=== PATIENT | female | born 1930 | race Caucasian/White ===

== ENCOUNTER → 2021-05-16 | Outpatient (CLI) | payer MEDICARE, BC ==
[2021-05-16 16:08] LABS: HCT 36.1 % (34.0-46.0); HGB 12.8 gm/dL (11.4-16.0); MCH 30.7 pg (25.0-35.0); MCHC 35.4 g/dL (31.0-37.0); MCV 86.7 fL (80.0-100.0); Mean Platelet Volume 6.8; Platelet Count 225 k/uL (150-450); RBC 4.17 m/uL (3.80-5.40); RDW 13.3 % (11.5-15.5); WBC 9.2 k/uL (3.8-10.6)
[2021-05-16 16:15] LABS: Appearance,Urine Clear (Clear); Bilirubin,Urine Negative (Negative); Blood,Urine Negative (Negative); Color,Urine Colorless; Glucose,Urine (UA) Negative (Negative); Ketones,Urine Negative (Negative); Leukocyte Esterase,Urine Large (Negative); Mucus,Urine Rare /hpf; Nitrite,Urine Negative (Negative); PH, Urine 5.5 (5.0-8.0); Protein,Urine Negative (Negative); RBC,Urine 3 /hpf (0-5); Specific Gravity,Urine 1.006 (1.001-1.035); Squamous Epithelial Cell,Urine <1 /hpf (0-4); Urobilinogen,Urine <2.0 mg/dL (<2.0); WBC,Urine 8 /hpf (0-5)
[2021-05-16 16:19] LABS: INR 0.9 (<1.2); Partial Thromboplastin Time 23.7 sec (22.0-30.0); Prothrombin Time 9.8 sec (9.0-12.0)
[2021-05-16 16:23] LABS: Albumin 4.1 g/dL (3.5-5.0); Calcium 10.7 mg/dL (8.4-10.2); Total Bilirubin 0.5 mg/dL (0.2-1.3); Total Protein 6.9 g/dL (6.3-8.2)
== END | disposition home or self-care (01) ==
LOC: LABPAT 15:22
PROVIDERS: ATTEND Orthopaedic Surgery
DX: Z01.812 Encounter for preprocedural laboratory examination (principal); M16.11 Unilateral primary osteoarthritis, right hip
CPT/HCPCS: 80053; 81001; 85027; 85610; 85730; 87070

== ENCOUNTER 2021-05-27 06:57 | Day surgery (SDC) | payer MEDICARE, BC ==
[2021-05-21 11:29] VITALS: BMI 32.2
[~2021-05-27 06:57] MED LIST: ACETAMINOPHEN TAB 500 MG TAB PO PRN; HYDROmorphone 0.5 MG/0.5 ML SYRINGE IVP PRN; LIDOCAINE 1% (10MG/ML) FOR IV START INTRADERMA PRN; MELOXICAM 7.5 MG TAB PO PRN; ONDANSETRON 4 MG/2 ML VIAL IVP PRN; ROPIVACAINE/EPI/CLONIDINE/KET 50 ML SYRINGE MISCELLANE PRN; TRANEXAMIC ACID 1,000 MG in SODIUM CHLORIDE 0.9% 100 ML IVPB PRN
[2021-05-27] MEDS: LACTATED RINGERS 1,000 ML IV SCH ×4 (07:50→19:26)
[2021-05-27] MEDS: DEXAMETHASONE SOD PHOSPHATE 4 MG/ML 1 ML VIAL IV ONE ×2 (07:55→12:32)
[2021-05-27] MEDS ORDERED: TRANEXAMIC ACID 1,000 MG/10 ML VIAL ONE (07:56)
[2021-05-27] MEDS ORDERED: PROPOFOL 10 MG/ML 20 ML VIAL IV ONE (07:56)
[2021-05-27] MEDS ORDERED: MIDAZOLAM 2 MG/2 ML VIAL ONE (07:56)
[2021-05-27] MEDS ORDERED: SODIUM CHLORIDE 0.9% 100 ML BAG ONE (07:56)
[2021-05-27] MEDS ORDERED: ceFAZolin 1,000 MG in SODIUM CHLORIDE 0.9% 1,000 ML IRRIGATION ONE (08:30)
--- NOTE | 2021-05-27 10:04 | P.OP ---
Date of Procedure: 05/27/21 Procedure(s) Performed: PREOPERATIVE DIAGNOSIS: Right hip severe osteoarthritis POSTOPERATIVE DIAGNOSIS: Right hip severe osteoarthritis OPERATION: Right hip total replacement arthroplasty (hybrid implantation with metal on polyethylene articulation). ANESTHESIA: Spinal ESTIMATED BLOOD LOSS: 50 ml. INFORMATION SECURITY ASSOCIATE: Svitlana Overton PA-C (assistance with: patient positioning, retraction, exposure, hemostasis, leg positioning, implantation, irrigation, closure, dressing) COMPLICATIONS: None apparent. COMPONENTS IMPLANTED: Jalen continuum acetabular cup with cluster holes; continuum longevity 15 elevated liner, 32 mm inner diameter; Jalen VerSys femoral stem; VerSys 32 mm femoral head with 10.5 mm neck length extension INDICATIONS: Mrs. Mcmahan is an 89 year old female she with significant end-stage osteoarthritis involving the right hip and commensurate severe symptoms. She presents to the operating room today for total hip replacement. I have discussed the steps of the operation as well as potential risks and complications as being inclusive of, but not limited to: Leading, infection, scarring, discomfort, or vessel and/or nerve damage, need for further surgery, loosening, dislocation, wear, osteolysis, limb length inequality, fracture, blood clot, pulmonary embolism, , persistent limp, and other risks. She has approximately 5-6 mm of limited quality with the left leg being longer than the right have told her that I will try my best to make up the difference. The patient is aware of these risks and wishes to proceed with surgery and has signed a consent form. PROCEDURE: After appropriate consent was obtained, the patient was taken to the operating room and placed in supine position. Spinal anesthetic was administered and after confirmation of adequate anesthesia, the patient was placed into the lateral decubitus position with the right side up. Care was taken to make sure that all pressure points were adequately padded and the patient was stabilized to the table with a [place] hip positioner. The right hip was prepped and draped in the usual aseptic fashion using a combination of ChloraPrep and alcohol. [place] drape was used for the case and the patient received intravenous antibiotics prior to the incision. Timeout was called, confirming patient id entity, side, procedure, availability of implants, and administration of IV antibiotics. The incision was created directly over the greater trochanter and carried slightly posteriorly for a posterior approach to the hip. The incision was then deepened down to subcutaneous tissue and fascia leonard. Fascia leonard was split in line with the incision and split proximally along the fibers of the gluteus m aximus. The underlying fibers of the muscle were teased apart using finger dissection and bleeding vessels were picked up and coagulated. Retractor was then placed posteriorly consisting of a blunt [place]. The short external rotators and capsule were exposed using good visualization of the attachment of the external rotators to the femur was established. The short external rotators and capsule were released using electrocautery from their femoral attachments. A hockey stick shaped incision was created in the capsule. Joint fluid was evacuated and the patient's hip was able to be dislocated fairly easily. The patient's femoral head was severely arthritic. The femoral neck cut was created approximately 1 cm superior to the lesser trochanter using a reciprocating saw. The femoral head and neck fragment was removed and attention was then directed to the acetabulum. An anterior acetabular retractor was applied followed by posterior retraction of the capsule with a [place] retractor. This afforded good visualization into the acetabular cavity. End-stage arthritis was noted. Soft tissue was removed and residual cartilage within the acetabular vault was removed using a curette. Labrum was removed using a long-handled knife. Attention was then directed to reaming. The size 44 reamer was used first, followed by increasing increments until the final size reamer was used. Please see the implantation sheet for exact sizes used for the components. Once the final reamer had been utilized to expand the socket it was noted that there was a good supportive bone around the acetabular socket and no further reaming needed to be performed. The trial the same size as the last reamer used was then impacted into the acetabular vault and found to have good fit. The acetabular size, one size (2mm) greater than the trial was then called for. The cluster holes were placed posteriorly and the component was impacted in a position of approximately 40 degrees abduction and 20 degrees anteversion. This matched this patient's paimiut anteversion and it was noted that the cup had excellent stability. A 15 elevated liner was inserted with the elevation posterior superior. Anesthetic solution consisting of ropivacaine with epinephrine, clonidine, and ketorolac was injected in a grid-type fashion around the anterior capsule, posterior capsule, abductor fascia, fascia leonard, subcutaneous tissues, and trochanteric bursa. This solution was injected periodically throughout the case depending on the exposure. Attention was then directed back to the proximal femur. Retractors were placed around the proximal femur and box osteotome was used followed by canal finder and trochanteric reamer. Cylindrical reaming was performed. Progressive broaching was then performed starting with a #10 broach and progressing final size, in a position of 10-15 degrees anteversion. [place] anteversion was within 5 degrees of stem position. The final size broach had excellent fit and fill of the patient's metaphysis and diaphysis. Trial reduction was then performed starting with size 32 mm femoral head and various neck combination of stability, limb length equality, and soft tissue tension. Trial components were then removed. Canal plug was inserted, and cement was mixed on the back table and allowed to reach a doughy consistency. The canal was pulse lavaged and brushed with a canal brush. Cement was then inserted retrograde into the canal and pressurized several times with thumb pressurization technique. The femoral stem component was impacted into position. Excess cement was removed. The cement was allowed to harden completely. The implant fit very well and had excellent stability. The femoral head was then impacted onto the Hernandez taper. Blood and debris were removed from the acetabular component and the hip was then reduced and checked for stability, limb length and soft tissue tension. These parameters found to be satisfactory, the wound was then thoroughly irrigated with normal saline. Final hemostasis was obtained using electrocautery and IV tranexamic acid, 1 g given at the time of prepping and draping, and another 1 g given at the time of closure. Closure of the capsule was performed meticulously using #3 Vicryl suture. Four [id number] sutures were placed in the posterior capsule along with repair of the external rotators. The fascia leonard was then repaired using combination of #3 Vicryl suture in interrupted fashion and Quill and running fashion. 2-0 Vicryl suture was used for the subcutaneous tissues and 3-0 [place] for the skin. Dermabond tape was then applied. The patient tolerated the procedure well. There were no complications and the wound bed was dry and there was no need for drain placement. Sterile dressing was then applied and the patient was carefully removed from the operating room table, placed on the stretcher and was taken to the recovery room in stable condition. Sponge and needle counts were correct.
[2021-05-27] MEDS ORDERED: ONDANSETRON 4 MG/2 ML VIAL IVP PRN (10:22)
[2021-05-27] MEDS ORDERED: HYDROmorphone 0.2 MG/1 ML SYRINGE IVP PRN (10:22)
[2021-05-27] MEDS ORDERED: NALOXONE 0.4 MG/ML 1 ML VIAL IV PRN (10:22)
[2021-05-27] MEDS ORDERED: HYDROmorphone 0.5 MG/0.5 ML SYRINGE IVP PRN ×2 (10:22)
[2021-05-27] MEDS ORDERED: MAGNESIUM HYDROXIDE 2,400 MG/10 ML CUP PO PRN (10:22)
[2021-05-27] MEDS ORDERED: TEMAZEPAM 15 MG CAP PO PRN (10:22)
[2021-05-27] MEDS ORDERED: LACTATED RINGERS 1,000 ML IV ONE (10:39)
--- NOTE | 2021-05-27 11:34 | XR ---
EXAMINATION TYPE: XR Hip Limited RT DATE OF EXAM: 05/27/2021 CLINICAL HISTORY: Postoperative evaluation TECHNIQUE: Single portable view of the right hip was submitted. FINDINGS: Noted are changes of total hip arthroplasty with femoral and acetabular components appearin g well seated. Alignment is anatomic. Postsurgical soft tissue changes are evident. IMPRESSION: Satisfactory postoperative alignment
[2021-05-27] MEDS: traMADol 50 MG TAB PO PRN ×2 (13:27→20:39)
[2021-05-27] MEDS: ASPIRIN 81 MG PO SCH (20:39)
[2021-05-27] MEDS: hydrALAZINE HCL 50 MG TAB PO SCH (20:39)
[2021-05-27] MEDS ORDERED: SENNOSIDES-DOCUSATE SODIUM 1 EACH TAB PO SCH (21:00)
[2021-05-27] MEDS ORDERED: SULFAMETHOX-TMP 800-160MG 1 EACH TAB PO SCH (21:00)
[2021-05-27] MEDS ORDERED: ATORVASTATIN 40 MG TAB PO SCH (21:00)
[2021-05-28] MEDS: LACTATED RINGERS 1,000 ML IV SCH ×3 (07:16→16:02)
[2021-05-28] MEDS: hydrALAZINE HCL 50 MG TAB PO SCH (07:59)
[2021-05-28] MEDS: traMADol 50 MG TAB PO PRN ×2 (07:59→14:00)
[2021-05-28] MEDS: ASPIRIN 81 MG PO SCH (07:59)
[2021-05-28] MEDS ORDERED: amLODIPine 5 MG TAB PO SCH (09:00)
[2021-05-28] MEDS ORDERED: CEPHALEXIN 500 MG CAP PO SCH ×2 (09:00→21:00)
[2021-05-28] MEDS ORDERED: atenoloL 50 MG TAB PO SCH (09:00)
[2021-05-28] MEDS ORDERED: MELOXICAM 7.5 MG TAB PO SCH (09:00)
[2021-05-28] MEDS ORDERED: CHLORTHALIDONE 25 MG TAB PO SCH (09:00)
--- NOTE | 2021-05-28 09:07 | P.DS ---
Providers Expected date of discharge: 05/28/21 Attending physician: Osorio Payne Consults: 05/27/21 10:22 Consult Physician Routine Consulting Provider: Akanksha Laboy Consult Reason/Comments: Medical management Do you want consulting provider notified?: Yes Primary care physician: Akanksha Laboy - Discharge Diagnosis(es) (1) Osteoarthritis of right hip Current Visit: Yes Status: Acute (2) Status post total hip replacement, right Current Visit: Yes Status: Acute Hospital Course: This is a 89-year-old female with known history of degenerative arthritis of the right hip. The patient presented for evaluation as an outpatient. After discussion and consideration patient elects to proceed with total hip arthroplasty. The patient is seen preoperatively by Dr. Payne and medically cleared for surgery by their primary care physician. Patient is admitted to [facility] on 05/27/2021 for total hip arthroplasty. The procedure is performed without complication or sequelae. The patient is doing well postoperatively. Labs and vital signs are stable on day of discharge. On day of discharge patient's hip incision is healing well. There is minimal erythema. There is no drainage noted at this time. There is minimal soft tissue swelling to the hip and thigh. Patient has full foot and ankle motion without difficulty or pain. Calf is soft and nontender to palpation. Neurovascular status to the right lower extremity is intact. Patient is discharged rehab in good condition. Please see med rec for accurate list of home medications. Plan - Discharge Summary Discharge Rx Participant: Yes New Discharge Prescriptions: New Meloxicam [Mobic] 1 tab PO DAILY PRN #30 tab PRN Reason: Pain Ondansetron Odt [Zofran Odt] 4 mg PO Q8HR PRN #14 tab PRN Reason: Nausea Aspirin [Adult Low Dose Aspirin EC] 81 mg PO BID #1 tablet. Sennosides-Docusate Sodium [Senokot-S] 1 tab PO BID #60 tablet traMADol HCL [Ultram] 50 mg PO Q6HR PRN #28 tab PRN Reason: Pain No Action Naproxen Sodium [Aleve] 220 mg PO Q4-6H PRN PRN Reason: Pain Acetaminophen [Tylenol] 325 mg PO Q4-6H PRN PRN Reason: Pain Atorvastatin [Lipitor] 40 mg PO HS Potassium Chloride [Klor-Con 20] 20 meq PO DAILY amLODIPine BESYLATE 5 mg PO QAM Atenolol/Chlorthalidone [Atenolol-Chlorthalidone 50-25] 1 each PO QAM Cholecalciferol [Vitamin D3 (25 Mcg = 1000 Iu)] 50 mcg PO DAILY Furosemide [Lasix] 20 mg PO Q48H hydrALAZINE HCL [Apresoline] 100 mg PO BID Sulfamethoxazole/Trimethoprim [Sulfamethoxazole-Tmp Ds Tablet] 1 each PO BID Discharge Medication List Acetaminophen [Tylenol] 325 mg PO Q4-6H PRN 06/16/16 [History] Naproxen Sodium [Aleve] 220 mg PO Q4-6H PRN 06/16/16 [History] Atenolol/Chlorthalidone [Atenolol-Chlorthalidone 50-25] 1 each PO QAM 05/21/21 [History] Atorvastatin [Lipitor] 40 mg PO HS 05/21/21 [History] Cholecalciferol [Vitamin D3 (25 Mcg = 1000 Iu)] 50 mcg PO DAILY 05/21/21 [History] Furosemide [Lasix] 20 mg PO Q48H 05/21/21 [History] Potassium Chloride [Klor-Con 20] 20 meq PO DAILY 05/21/21 [History] Sulfamethoxazole/Trimethoprim [Sulfamethoxazole-Tmp Ds Tablet] 1 each PO BID 05/21/21 [History] amLODIPine BESYLATE 5 mg PO QAM 05/21/21 [History] hydrALAZINE HCL [Apresoline] 100 mg PO BID 05/21/21 [History] Aspirin [Adult Low Dose Aspirin EC] 81 mg PO BID #1 tablet. 05/27/21 [Rx] Meloxicam [Mobic] 1 tab PO DAILY PRN #30 tab 05/27/21 [Rx] Ondansetron Odt [Zofran Odt] 4 mg PO Q8HR PRN #14 tab 05/27/21 [Rx] Sennosides-Docusate Sodium [Senokot-S] 1 tab PO BID #60 tablet 05/27/21 [Rx] traMADol HCL [Ultram] 50 mg PO Q6HR PRN #28 tab 05/27/21 [Rx] Follow up Appointment(s)/Referral(s): Svitlana Overton, BETY [PHYSICIAN PEARL FISHERMAN] - 2 Weeks Activity/Diet/Wound Care/Special Instructions: May bear weight as tolerated with walker. Keep Optifoam dressing intact for 10 days. May shower 48 hours postop. Discharge Disposition: TRANSFER TO SNF/ECF
[2021-05-28 12:57] LABS: Basophils # (A) 0.01 X 10*3/uL (0.00-0.10); Basophils % (A) 0.1 %; Eosinophils # (A) 0.01 X 10*3/uL (0.04-0.35); Eosinophils % (A) 0.1 %; HCT 31.1 % (37.2-46.3); HGB 10.2 g/dL (12.0-15.0); Lymphocytes # (A) 1.29 X 10*3/uL (0.90-5.00); Lymphocytes % (A) 11.4 %; MCH 29.1 pg (27.0-32.0); MCHC 32.8 g/dL (32.0-37.0); MCV 88.6 fL (80.0-97.0); Mean Platelet Volume 10.5 fL (9.5-12.2); Monocytes # (A) 0.83 X 10*3/uL (0.20-1.00); Monocytes % (A) 7.3 %; Neutrophils # (A) 9.17 X 10*3/uL (1.80-7.70); Neutrophils % (A) 80.7 %; Platelet Count 209 X 10*3/uL (140-440); RBC 3.51 X 10*6/uL (4.10-5.20); RDW 13.2 % (11.5-14.5); WBC 11.35 X 10*3/uL (4.50-10.00)
[2021-05-28 14:34] VITALS: BP 145/56; PULSE 64; RESP 18; TEMP 98.9
--- NOTE | 2021-05-28 22:47 | P.CONS ---
History of Present Illness - History of Present Illness This is a pleasant 84 years old female with past medical history of hypertens ion, hyperlipidemia, osteoarthritis was admitted for osteoarthritis of the right hip status post total right hip replacement. Postop she's doing well. No chest pain or dyspnea. Fully awake. She's not starting eating. When I saw her in the morning, no bowel movement or bowel Hemodynamically stable No labs Review of Systems CONSTITUTIONAL: No fever, no malaise, no fatigue. HEENT: No recent visual problems or hearing problems. Denied any sore throat. CARDIOVASCULAR: No orthopnea, PND, no palpitations, no syncope. PULMONARY: No shortness of breath, no cough, no hemoptysis. GASTROINTESTINAL: No diarrhea, no nausea, no vomiting, no abdominal pain. Normoactive bowel sounds. NEUROLOGICAL: No headaches, no weakness, no numbness. HEMATOLOGICAL: Denies any bleeding or petechiae. GENITOURINARY: Denies any burning micturition, frequency, or urgency. MUSCULOSKELETAL/RHEUMATOLOGICAL: Denies any joint pain, swelling, or any muscle pain. ENDOCRINE: Denies any polyuria or polydipsia. Past Medical History Past Medical History: Cancer, Hyperlipidemia, Hypertension, Osteoarthritis (OA) Additional Past Medical History / Comment(s): SEVERAL BASAL CELL/SKIN LESIONS REMOVED, heart murmer, varicose veins, UTI History of Any Multi-Drug Resistant Organisms: None Reported Past Surgical History: Section, Joint Replacement Additional Past Surgical History / Comment(s): BILATERAL CATARACTS, left hip replacement, colonoscopy Past Anesthesia/Blood Transfusion Reactions: Previous Problems w/ Anesthesia Additional Past Anesthesia/Blood Transfusion Reaction / Comm: came out of anesthesia during surgery Past Psychological History: No Psychological Hx Reported Smoking Status: Never smoker Past Alcohol Use History: Rare Past Drug Use History: None Reported - Past Family History Mother Family Medical History: No Reported History Medications and Allergies Home Medications Medication Instructions Recorded Confirmed Type Acetaminophen [Tylenol] 325 mg PO Q4-6H PRN 06/16/16 05/27/21 History Atenolol/Chlorthalidone 1 each PO QAM 05/21/21 05/27/21 History [Atenolol-Chlorthalidone 50-25] Atorvastatin [Lipitor] 40 mg PO HS 05/21/21 05/27/21 History Cholecalciferol [Vitamin D3 (25 50 mcg PO DAILY 05/21/21 05/21/21 History Mcg = 1000 Iu)] Furosemide [Lasix] 20 mg PO Q48H 05/21/21 05/21/21 History Potassium Chloride [Klor-Con 20] 20 meq PO DAILY 05/21/21 05/21/21 History amLODIPine BESYLATE 5 mg PO QAM 05/21/21 05/27/21 History hydrALAZINE HCL [Apresoline] 100 mg PO BID 05/21/21 05/27/21 History Ondansetron Odt [Zofran Odt] 4 mg PO Q8HR PRN #14 tab 05/27/21 Rx Sennosides-Docusate Sodium 1 tab PO BID #60 tablet 05/27/21 Rx [Senokot-S] traMADol HCL [Ultram] 50 mg PO Q6HR PRN #28 tab 05/27/21 Rx Aspirin [Adult Low Dose Aspirin EC] 81 mg PO BID #60 tablet. 05/28/21 Rx Allergies Allergy/AdvReac Type Severity Reaction Status Date / Time sulfamethoxazole AdvReac Nausea & Verified 05/27/21 15:36 [From Bactrim] Vomiting trimethoprim [From Bactrim] AdvReac Nausea & Verified 05/27/21 15:36 Vomiting Physical Exam Vitals: Vital Signs Temp Pulse Resp BP Pulse Ox 05/28/21 07:53 98.3 F 59 L 17 157/70 96 05/28/21 02:00 97.6 F 65 138/54 94 L 05/27/21 20:00 97.8 F 63 18 146/63 96 05/27/21 13:15 63 19 99/53 97 05/27/21 13:00 62 18 105/62 97 Intake and Output 05/27/21 05/28/21 05/28/21 22:59 06:59 14:59 Other: # Voids 2 2 GENERAL: The patient is alert and oriented x3, not in any acute distress. Well developed, well nourished. HEENT: Pupils are round and equally reacting to light. EOMI. No scleral icterus. No conjunctival pallor. Normocephalic, atraumatic. No pharyngeal erythema. No thyromegaly. CARDIOVASCULAR: S1 and S2 present. No murmurs, rubs, or gallops. PULMONARY: Chest is clear to auscultation, no wheezing or crackles. ABDOMEN: Soft, nontender, nondistended, normoactive bowel sounds. No palpable organomegaly. -MUSCULOSKELETAL: No joint swelling or deformity. Surgical wound closed, the rest of the examination of the wound to the surgical team EXTREMITIES: No cyanosis, clubbing, or pedal edema. NEUROLOGICAL: Gross neurological examination did not reveal any focal deficits. SKIN: No rashes. no petechiae. Results CBC & Chem 7: 05/28/21 06:11 Assessment and Plan Assessment: Right hip osteoarthritis status post right total hip replacement Hypertension Hyperlipidemia Plan: This is a pleasant 89 years old female who presents with right total hip replacement. Postop management and pain management and DVT prophylaxis per primary team Resume home medication Continue with pain management as per primary team Patient is medically stable for discharge to rehab today Patient was instructed to follow up with PCP in one week after discharge and she agrees Thank you for consulting us
== END 2021-05-28 16:48 ==
LOC: OR 06:57 → 4SSUR 10:54 → OR 05-28 16:48
PROVIDERS: ATTEND Orthopaedic Surgery
DX: M16.11 Unilateral primary osteoarthritis, right hip (principal); E78.5 Hyperlipidemia, unspecified; Z85.828 Personal history of other malignant neoplasm of skin; I12.9 Hypertensive chronic kidney disease with stage 1 through stage 4 chronic kidney disease, or unspecified chronic kidney disease; N18.31 Chronic kidney disease, stage 3a; R01.1 Cardiac murmur, unspecified; I83.90 Asymptomatic varicose veins of unspecified lower extremity; Z87.440 Personal history of urinary (tract) infections; Z98.891 History of uterine scar from previous surgery; Z96.642 Presence of left artificial hip joint; Z98.42 Cataract extraction status, left eye; Z98.41 Cataract extraction status, right eye; Z98.890 Other specified postprocedural states; Z79.891 Long term (current) use of opiate analgesic; Z79.899 Other long term (current) drug therapy; Z79.82 Long term (current) use of aspirin; Z88.2 Allergy status to sulfonamides; Z97.3 Presence of spectacles and contact lenses; Z82.49 Family history of ischemic heart disease and other diseases of the circulatory system; Z87.891 Personal history of nicotine dependence; Z88.8 Allergy status to other drugs, medicaments and biological substances; I44.7 Left bundle-branch block, unspecified; M85.80 Other specified disorders of bone density and structure, unspecified site; M54.30 Sciatica, unspecified side; B35.3 Tinea pedis; E78.00 Pure hypercholesterolemia, unspecified; E66.9 Obesity, unspecified; Z68.32 Body mass index [BMI] 32.0-32.9, adult; M06.9 Rheumatoid arthritis, unspecified; E55.9 Vitamin D deficiency, unspecified
CPT/HCPCS: 27130; 97116; 97110; 97161; 97165; 85025; 88300; 87635; 73501; C1776 ×2; C1713; J2250; J1100; J0690 ×3; J2405; J2704; J1170; 36415; 86850; 86900; 86901

== ENCOUNTER 2021-11-24 16:33 | Emergency (ER) | payer MEDICARE, BC ==
[2021-11-24 16:42] VITALS: RESP 18
[2021-11-24] MEDS ORDERED: SODIUM CHLORIDE 0.9% 500 ML 500 ML IV ONE (16:46)
--- NOTE | 2021-11-24 16:46 | ED ---
Nausea/Vomiting/Diarrhea HPI - General Chief complaint: Nausea/Vomiting/Diarrhea Stated complaint: vomiting Time Seen by Provider: 11/24/21 16:45 Source: patient Mode of arrival: ambulatory Limitations: no limitations - History of Present Illness Initial comments: hRea is a pleasant 89-year-old female who presents to ER today via ambulance. Patient ports that she lives alone. This morning she had some milk with breakfast in the milk with sour. She states that between 09/12/1928 she developed nausea and vomiting. She's not been able to stop vomiting throughout the day. Should a normal bowel movement this morning. She's not having any diarrhea. No fevers chills or recent illness. She states that because she had such sudden onset of symptoms she is concerned she has carbon monoxide poisoning however she has carbon monoxide detectors in the house and they were not alarming. - Related Data Home Medications Medication Instructions Recorded Confirmed Atenolol/Chlorthalidone 1 tab PO DAILY 05/21/21 11/24/21 [Atenolol/Chlorthalidone 50-25] Atorvastatin [Lipitor] 40 mg PO HS 05/21/21 11/24/21 Cholecalciferol [Vitamin D3 (25 50 mcg PO DAILY 05/21/21 11/24/21 Mcg = 1000 Iu)] Furosemide [Lasix] 20 mg PO Q48H 05/21/21 11/24/21 Potassium Chloride [Klor-Con 20] 20 meq PO Q48H 05/21/21 11/24/21 amLODIPine BESYLATE 5 mg PO DAILY 05/21/21 11/24/21 hydrALAZINE HCL [Apresoline] 100 mg PO BID 05/21/21 11/24/21 Previous Rx's Medication Instructions Recorded Ondansetron [Zofran ODT] 4 mg PO Q8HR #12 tab 11/24/21 Allergies Allergy/AdvReac Type Severity Reaction Status Date / Time sulfamethoxazole AdvReac Nausea & Verified 11/24/21 18:58 [From Bactrim] Vomiting trimethoprim [From Bactrim] AdvReac Nausea & Verified 11/24/21 18:58 Vomiting Review of Systems ROS Statement: Those systems with pertinent positive or pertinent negative responses have been documented in the HPI. ROS Other: All systems not noted in ROS Statement are negative. Past Medical History Past Medical History: Hyperlipidemia, Hypertension, Osteoarthritis (OA) Additional Past Medical History / Comment(s): SEVERAL BASAL CELL/SKIN LESIONS REMOVED, heart murmer, varicose veins, UTI History of Any Multi-Drug Resistant Organisms: None Reported Past Surgical History: Section Additional Past Surgical History / Comment(s): BILATERAL CATARACTS Past Anesthesia/Blood Transfusion Reactions: Motion Sickness Past Psychological History: No Psychological Hx Reported Past Alcohol Use History: Rare Past Drug Use History: None Reported - Past Family History Mother Family Medical History: No Reported History General Exam - General Exam Comments Initial Comments: Physical Exam GENERAL: Patient is well-developed and well-nourished. Patient is nontoxic and well-hydrated and is in no distress. HENT: Normocephalic, Atraumatic. EYES: PERRL, EOMI PULMONARY: Unlabored respirations. CARDIOVASCULAR: RRR Warm and well perfused extremities ABDOMEN: Soft, nondistended, nontender SKIN: No rashes or bruising : Deferred NEUROLOGIC: Alert and oriented Normal speech Normal gait MUSCULOSKELETAL: Moving all extremities with no apparent injury PSYCHIATRIC: No SI/HI Limitations: no limitations Course Vital Signs 11/24/21 11/24/21 16:40 20:30 Temperature 98 F 98.7 F Pulse Rate 78 85 Respiratory 18 18 Rate Blood Pressure 216/93 157/84 O2 Sat by Pulse 94 L 94 L Oximetry Medical Decision Making - Medical Decision Making The patient was seen and evaluated history was obtained from the patient Patient received IV fluids in the hospital as well as Zofran and her nausea has improved Labs and pain were unremarkable Patient's carboxyhemoglobin was unremarkable Observe for a number of hours with no further episodes of vomiting patient reports she is feeling better she doesn't have much appetite but she would like to go home Lab findings were discussed with patient's daughter, she states that one there are other family members was at the home yesterday and vomited they are concerned that the patient may been exposed COVID-19 would like her tested Patient will be tested prior to discharge but 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 home - Lab Data Result diagrams: 11/24/21 16:48 11/24/21 16:48 Lab Results 11/24/21 11/24/21 11/24/21 Range/Units 16:48 16:48 16:48 WBC 12.8 H (3.8-10.6) k/uL RBC 4.26 (3.80-5.40) m/uL Hgb 12.1 (11.4-16.0) gm/dL Hct 37.4 (34.0-46.0) % MCV 87.8 (80.0-100.0) fL MCH 28.4 (25.0-35.0) pg MCHC 32.4 (31.0-37.0) g/dL RDW 13.3 (11.5-15.5) % Plt Count 215 (150-450) k/uL MPV 7.2 Neutrophils % 90 % Lymphocytes % 8 % Monocytes % 2 % Eosinophils % 0 % Basophils % 0 % Neutrophils # 11.5 H (1.3-7.7) k/uL Lymphocytes # 1.0 (1.0-4.8) k/uL Monocytes # 0.2 (0-1.0) k/uL Eosinophils # 0.0 (0-0.7) k/uL Basophils # 0.0 (0-0.2) k/uL Carbon Monoxide, Quant 1.8 (<10.0) % Sodium 136 L (137-145) mmol/L Potassium 3.3 L (3.5-5.1) mmol/L Chloride 101 (98-107) mmol/L Carbon Dioxide 25 (22-30) mmol/L Anion Gap 10 mmol/L BUN 26 H (7-17) mg/dL Creatinine 0.83 (0.52-1.04) mg/dL Est GFR (CKD-EPI)AfAm 73 (>60 ml/min/1.73 sqM) Est GFR (CKD-EPI)NonAf 64 (>60 ml/min/1.73 sqM) Glucose 186 H (74-99) mg/dL Calcium 10.2 (8.4-10.2) mg/dL Total Bilirubin 0.6 (0.2-1.3) mg/dL AST 37 H (14-36) U/L ALT 23 (4-34) U/L Alkaline Phosphatase 135 H (38-126) U/L Total Protein 7.2 (6.3-8.2) g/dL Albumin 4.1 (3.5-5.0) g/dL Disposition Clinical Impression: Nausea and vomiting Disposition: HOME SELF-CARE Condition: Stable Instructions (If sedation given, give patient instructions): Acute Nausea and Vomiting (ED) Prescriptions: Ondansetron [Zofran ODT] 4 mg PO Q8HR #12 tab Is patient prescribed a controlled substance at d/c from ED?: No Referrals: Akanksha Laboy MD [Primary Care Provider] - 1-2 days
[2021-11-24 16:58] LABS: Basophils % (A) 0 %; Eosinophils % (A) 0 %; HCT 37.4 % (34.0-46.0); HGB 12.1 gm/dL (11.4-16.0); Lymphocytes % (A) 8 %; MCH 28.4 pg (25.0-35.0); MCHC 32.4 g/dL (31.0-37.0); MCV 87.8 fL (80.0-100.0); Mean Platelet Volume 7.2; Monocytes # (A) 0.2 k/uL (0-1.0); Monocytes % (A) 2 %; Neutrophils # (A) 11.5 k/uL (1.3-7.7); Neutrophils % (A) 90 %; Platelet Count 215 k/uL (150-450); RBC 4.26 m/uL (3.80-5.40); RDW 13.3 % (11.5-15.5); WBC 12.8 k/uL (3.8-10.6)
[2021-11-24 17:15] LABS: Albumin 4.1 g/dL (3.5-5.0); Calcium 10.2 mg/dL (8.4-10.2); Potassium 3.3 mmol/L (3.5-5.1); Total Bilirubin 0.6 mg/dL (0.2-1.3); Total Protein 7.2 g/dL (6.3-8.2)
[2021-11-24] MEDS ORDERED: ONDANSETRON 4 MG ODT STARTER PACK 2 TAB BTL PO STA (19:47)
[2021-11-24 20:32] VITALS: BP 157/84; PULSE 85; TEMP 98.7
== END 2021-11-24 20:42 | disposition home or self-care (01) ==
LOC: EC 16:33
DX: R11.2 Nausea with vomiting, unspecified (principal); I10 Essential (primary) hypertension; E78.5 Hyperlipidemia, unspecified; M19.90 Unspecified osteoarthritis, unspecified site; Z79.899 Other long term (current) drug therapy
CPT/HCPCS: 36415; 80053; 82375; 85025; 87635; 99284; S0119

== ENCOUNTER 2022-03-10 14:16 | Inpatient (IN) | payer MEDICARE, BC ==
[~2022-03-10 14:16] MED LIST changes: -ACETAMINOPHEN TAB 500 MG TAB PO PRN; -HYDROmorphone 0.5 MG/0.5 ML SYRINGE IVP PRN; -LIDOCAINE 1% (10MG/ML) FOR IV START INTRADERMA PRN; -MELOXICAM 7.5 MG TAB PO PRN; -ONDANSETRON 4 MG/2 ML VIAL IVP PRN; -ROPIVACAINE/EPI/CLONIDINE/KET 50 ML SYRINGE MISCELLANE PRN; -TRANEXAMIC ACID 1,000 MG in SODIUM CHLORIDE 0.9% 100 ML IVPB PRN; +ceFAZolin 1 GM in SODIUM CHLORIDE 0.9% IRRIG BTL 250 ML IRRIGATION PRN
--- NOTE | 2022-03-10 15:28 | ED ---
General Adult HPI - General Chief complaint: Dizziness Stated complaint: Low heart rate, abnormal EKG, Shortness of Breath Time Seen by Provider: 03/10/22 14:59 Source: patient, RN notes reviewed, old records reviewed Mode of arrival: wheelchair Limitations: no limitations - History of Present Illness Initial comments: This is an 89-year-old female who presents emergency Department complaining of weakness and lightheadedness and near syncopal episodes. Patient states she has not passed out. Patient states been ongoing for the last 2-3 days. Patient denies any chest pain or palpitations. Patient denies shortness of breath or difficulty breathing. Patient states she does feel extremely tired and weak. Patient denies any recent fever chills or cough per patient denies any abdominal pain patient denies nausea vomiting diarrhea. - Related Data Home Medications Medication Instructions Recorded Confirmed Atenolol/Chlorthalidone 1 tab PO DAILY 05/21/21 11/24/21 [Atenolol/Chlorthalidone 50-25] Atorvastatin [Lipitor] 40 mg PO HS 05/21/21 11/24/21 Cholecalciferol [Vitamin D3 (25 50 mcg PO DAILY 05/21/21 11/24/21 Mcg = 1000 Iu)] Furosemide [Lasix] 20 mg PO Q48H 05/21/21 11/24/21 Potassium Chloride [Klor-Con 20] 20 meq PO Q48H 05/21/21 11/24/21 amLODIPine BESYLATE 5 mg PO DAILY 05/21/21 11/24/21 hydrALAZINE HCL [Apresoline] 100 mg PO BID 05/21/21 11/24/21 Previous Rx's Medication Instructions Recorded Ondansetron [Zofran ODT] 4 mg PO Q8HR #12 tab 11/24/21 Allergies Allergy/AdvReac Type Severity Reaction Status Date / Time sulfamethoxazole AdvReac Nausea & Verified 03/10/22 14:46 [From Bactrim] Vomiting trimethoprim [From Bactrim] AdvReac Nausea & Verified 03/10/22 14:46 Vomiting Review of Systems ROS Statement: Those systems with pertinent positive or pertinent negative responses have been documented in the HPI. ROS Other: All systems not noted in ROS Statement are negative. Past Medical History Past Medical History: Hyperlipidemia, Hypertension, Osteoarthritis (OA) Additional Past Medical History / Comment(s): SEVERAL BASAL CELL/SKIN LESIONS REMOVED, heart murmer, varicose veins, UTI History of Any Multi-Drug Resistant Organisms: None Reported Past Surgical History: Section Additional Past Surgical History / Comment(s): BILATERAL CATARACTS Past Anesthesia/Blood Transfusion Reactions: Motion Sickness Past Psychological History: No Psychological Hx Reported Smoking Status: Never smoker Past Alcohol Use History: Rare Past Drug Use History: None Reported - Past Family History Mother Family Medical History: No Reported History General Exam - General Exam Comments Initial Comments: GENERAL: Patient is well-developed and well-nourished. Patient is nontoxic and well- hydrated and is in mild distress. ENT: Neck is soft and supple. No significant lymphadenopathy is noted. Oropharynx is clear. Moist mucous membranes. Neck has full range of motion without eliciting any pain. EYES: The sclera were anicteric and conjunctiva were pink and moist. Extraocular movements were intact and pupils were equal round and reactive to light. Eyelids were unremarkable. PULMONARY: Unlabored respirations. Good breath sounds bilaterally. No audible rales rhonchi or wheezing was noted. CARDIOVASCULAR: Patient has a heart rate of 25-35 bpm. ABDOMEN: Soft and nontender with normal bowel sounds. SKIN: Skin is clear with no lesions or rashes and otherwise unremarkable. NEUROLOGIC: Patient is alert and oriented x3. Cranial nerves II through XII are grossly intact. Motor and sensory are also intact. Normal speech, volume and content. Symmetrical smile. MUSCULOSKELETAL: Normal extremities with adequate strength and full range of motion. LYMPHATICS: No significant lymphadenopathy is noted PSYCHIATRIC: Normal psychiatric evaluation. Limitations: no limitations Course Vital Signs 03/10/22 03/10/22 14:46 15:05 Temperature 98.3 F Pulse Rate 32 L Pulse Rate [ 30 L Nip Wrapper ] Respiratory 16 Rate Blood Pressure 172/69 O2 Sat by Pulse 95 Oximetry Medical Decision Making - Medical Decision Making EKG showed a third-degree block at 25 bpm VA interval is 121 QRS is 137 QT intervals 597 QTC is 408. Patient's EKG shows no significant ST segment elevation or depression. I spoke with Dr. Sotomayor he came down and saw the patient and he determined that the pacemaker will be placed by Dr. Souza - Lab Data Result diagrams: 03/10/22 15:21 03/10/22 15:21 Lab Results 03/10/22 03/10/22 03/10/22 Range/Units 15:21 15:21 15:21 WBC 10.1 (3.8-10.6) k/uL RBC 3.97 (3.80-5.40) m/uL Hgb 11.2 L (11.4-16.0) gm/dL Hct 34.5 (34.0-46.0) % MCV 86.9 (80.0-100.0) fL MCH 28.3 (25.0-35.0) pg MCHC 32.6 (31.0-37.0) g/dL RDW 14.0 (11.5-15.5) % Plt Count 232 (150-450) k/uL MPV 7.8 Neutrophils % 81 % Lymphocytes % 14 % Monocytes % 3 % Eosinophils % 0 % Basophils % 0 % Neutrophils # 8.2 H (1.3-7.7) k/uL Lymphocytes # 1.4 (1.0-4.8) k/uL Monocytes # 0.3 (0-1.0) k/uL Eosinophils # 0.0 (0-0.7) k/uL Basophils # 0.0 (0-0.2) k/uL PT 10.4 (9.0-12.0) sec INR 1.0 (<1.2) APTT 25.1 (22.0-30.0) sec Sodium 134 L (137-145) mmol/L Potassium 3.5 (3.5-5.1) mmol/L Chloride 99 (98-107) mmol/L Carbon Dioxide 26 (22-30) mmol/L Anion Gap 9 mmol/L BUN 32 H (7-17) mg/dL Creatinine 1.18 H (0.52-1.04) mg/dL Est GFR (CKD-EPI)AfAm 47 (>60 ml/min/1.73 sqM) Est GFR (CKD-EPI)NonAf 41 (>60 ml/min/1.73 sqM) Glucose 111 H (74-99) mg/dL Calcium 9.8 (8.4-10.2) mg/dL Magnesium 1.5 L (1.6-2.3) mg/dL Total Bilirubin 0.7 (0.2-1.3) mg/dL AST 31 (14-36) U/L ALT 21 (4-34) U/L Alkaline Phosphatase 112 (38-126) U/L Troponin I (0.000-0.034) ng/mL Total Protein 6.6 (6.3-8.2) g/dL Albumin 3.6 (3.5-5.0) g/dL TSH (0.465-4.680) mIU/L 03/10/22 03/10/22 Range/Units 15:21 15:58 WBC (3.8-10.6) k/uL RBC (3.80-5.40) m/uL Hgb (11.4-16.0) gm/dL Hct (34.0-46.0) % MCV (80.0-100.0) fL MCH (25.0-35.0) pg MCHC (31.0-37.0) g/dL RDW (11.5-15.5) % Plt Count (150-450) k/uL MPV Neutrophils % % Lymphocytes % % Monocytes % % Eosinophils % % Basophils % % Neutrophils # (1.3-7.7) k/uL Lymphocytes # (1.0-4.8) k/uL Monocytes # (0-1.0) k/uL Eosinophils # (0-0.7) k/uL Basophils # (0-0.2) k/uL PT (9.0-12.0) sec INR (<1.2) APTT (22.0-30.0) sec Sodium (137-145) mmol/L Potassium (3.5-5.1) mmol/L Chloride (98-107) mmol/L Carbon Dioxide (22-30) mmol/L Anion Gap mmol/L BUN (7-17) mg/dL Creatinine (0.52-1.04) mg/dL Est GFR (CKD-EPI)AfAm (>60 ml/min/1.73 sqM) Est GFR (CKD-EPI)NonAf (>60 ml/min/1.73 sqM) Glucose (74-99) mg/dL Calcium (8.4-10.2) mg/dL Magnesium (1.6-2.3) mg/dL Total Bilirubin (0.2-1.3) mg/dL AST (14-36) U/L ALT (4-34) U/L Alkaline Phosphatase (38-126) U/L Troponin I 0.058 H* (0.000-0.034) ng/mL Total Protein (6.3-8.2) g/dL Albumin (3.5-5.0) g/dL TSH 1.600 (0.465-4.680) mIU/L Critical Care Time Critical Care Time: Yes Total Critical Care Time: 35 Disposition Clinical Impression: Third degree AV block, Near syncope Disposition: ADMITTED IP TO THIS HOSP Referrals: Akanksha Laboy MD [Primary Care Provider] - 1-2 days Time of Disposition: 17:03
[2022-03-10 15:38] LABS: Albumin 3.6 g/dL (3.5-5.0); Calcium 9.8 mg/dL (8.4-10.2); Magnesium 1.5 mg/dL (1.6-2.3); Potassium 3.5 mmol/L (3.5-5.1); Total Bilirubin 0.7 mg/dL (0.2-1.3); Total Protein 6.6 g/dL (6.3-8.2)
[2022-03-10 15:40] LABS: Basophils % (A) 0 %; Eosinophils % (A) 0 %; HCT 34.5 % (34.0-46.0); HGB 11.2 gm/dL (11.4-16.0); Lymphocytes # (A) 1.4 k/uL (1.0-4.8); Lymphocytes % (A) 14 %; MCH 28.3 pg (25.0-35.0); MCHC 32.6 g/dL (31.0-37.0); MCV 86.9 fL (80.0-100.0); Mean Platelet Volume 7.8; Monocytes # (A) 0.3 k/uL (0-1.0); Monocytes % (A) 3 %; Neutrophils # (A) 8.2 k/uL (1.3-7.7); Neutrophils % (A) 81 %; Platelet Count 232 k/uL (150-450); RBC 3.97 m/uL (3.80-5.40); WBC 10.1 k/uL (3.8-10.6)
[2022-03-10 15:41] LABS: Partial Thromboplastin Time 25.1 sec (22.0-30.0); Prothrombin Time 10.4 sec (9.0-12.0)
--- NOTE | 2022-03-10 15:42 | XR ---
EXAMINATION TYPE: XR chest 2V DATE OF EXAM: 03/10/2022 COMPARISON: NONE HISTORY: SOB and dizzyness. TECHNIQUE: Frontal and lateral views of the chest are obtained. FINDINGS: There is chronic parenchymal change without focal air space opacity, pleural effusion, or pneumothorax seen. Cardiomegaly with atherosclerotic thoracic aorta. The osseous structures are de mineralized. Degenerative changes bilateral glenohumeral joints. IMPRESSION: Chronic changes and cardiomegaly without acute pulmonary process.
--- NOTE | 2022-03-10 15:51 | P.CRDCN ---
History of Present Illness Consult date: 03/10/22 History of present illness: History of Present Illness: The patient is an 89-year-old female with no prior of CAD or CHF who for the last few days has been complaining of progressive fatigue, dyspnea on exertion, dizziness but no syncope. She was seen by Dr. Laboy today and was found to be bradycardic. In the emergency room she was noted to be in complete heart block. She has no syncopal episode and no prior similar events. She is usually active physically, drives and takes care of her daily activity without any limitations. She has no history of PND or orthopnea. She has chronic peripheral edema according to her stable. She denies any chest discomfort and she has no palpitations. She has no recent change in her medication. She has a history of hypertension and hyperlipidemia, she is a nonsmoker nondiabetic. In the emergency room her potassium was normal at 3.5 and her BUN 32 with a creatinine of 1.18, her creatinine was normal in November. Her EKG shows sinus mechanism with complete heart block and a ventricular rate in the 30s. Her medications include hydralazine 100 mg twice a day, amlodipine 5 mg daily, atenolol chlorthalidone 5025 milligrams daily, Lipitor 40 mg daily, Lasix 20 mg every other day in addition to potassium. Review of Systems: Respiratory: She has the history of progressive dyspnea over the last week GI: She had nausea and vomiting today. No history of peptic ulcer disease. No recent GI bleed. : No hematuria or dysuria. Nervous System: No stroke or seizure. Physical Examination: She is an 89-year-old female, alert and oriented no apparent distress. Blood pressure 170/60 with a heart rate in the 30s Head: Normocephalic. Eyes: Sclerae nonicteric. Neck: Good carotid upstroke, no bruit, no jugular venous distention. Lungs: Clear to auscultation. Heart: Bradycardic, S1-S2 was a systolic murmur ejection type at the base 2/6 Abdomen: Soft nontender, positive bowel sound, no organomegaly Extremities: +1 edema, intact distal pulses. Labs: EKG shows sinus mechanism with sinus bradycardia and no acute ST segment changes. Potassium 3.5. Hemoglobin 11.2. Chest x-ray with no acute infiltrate Impression: 1. Symptomatic complete heart block, her sinus rate is stable 2. History of hypertension 3. History of hyperlipidemia 4. Worsening renal function probable secondary to hypoperfusion Plan: 1. The patient would require permanent pacemaker implantation, I discussed the findings with her and her daughter 2. Hold beta salvador 3. Resume other antihypertensive regimen 4. Obtain an echocardiogram with Doppler 5. Discussed the case with Dr. Souza who will proceed with permanent pacemaker implantation today 6. Thank you for this consult we will follow with you. Past Medical History Past Medical History: Hyperlipidemia, Hypertension, Osteoarthritis (OA) Additional Past Medical History / Comment(s): SEVERAL BASAL CELL/SKIN LESIONS REMOVED, heart murmer, varicose veins, UTI History of Any Multi-Drug Resistant Organisms: None Reported Past Surgical History: Section Additional Past Surgical History / Comment(s): BILATERAL CATARACTS Past Anesthesia/Blood Transfusion Reactions: Motion Sickness Past Psychological History: No Psychological Hx Reported Smoking Status: Never smoker Past Alcohol Use History: Rare Past Drug Use History: None Reported - Past Family History Mother Family Medical History: No Reported History Medications and Allergies Home Medications Medication Instructions Recorded Confirmed Type Atenolol/Chlorthalidone 1 tab PO DAILY 05/21/21 11/24/21 History [Atenolol/Chlorthalidone 50-25] Atorvastatin [Lipitor] 40 mg PO HS 05/21/21 11/24/21 History Cholecalciferol [Vitamin D3 (25 50 mcg PO DAILY 05/21/21 11/24/21 History Mcg = 1000 Iu)] Furosemide [Lasix] 20 mg PO Q48H 05/21/21 11/24/21 History Potassium Chloride [Klor-Con 20] 20 meq PO Q48H 05/21/21 11/24/21 History amLODIPine BESYLATE 5 mg PO DAILY 05/21/21 11/24/21 History hydrALAZINE HCL [Apresoline] 100 mg PO BID 05/21/21 11/24/21 History Ondansetron [Zofran ODT] 4 mg PO Q8HR #12 tab 11/24/21 Rx Allergies Allergy/AdvReac Type Severity Reaction Status Date / Time sulfamethoxazole AdvReac Nausea & Verified 03/10/22 14:46 [From Bactrim] Vomiting trimethoprim [From Bactrim] AdvReac Nausea & Verified 03/10/22 14:46 Vomiting Physical Exam Vitals: Vital Signs Temp Pulse Pulse Resp BP Pulse Ox 03/10/22 15:05 30 L 03/10/22 14:46 98.3 F 32 L 16 172/69 95 Intake and Output 03/10/22 03/10/22 03/10/22 06:59 14:59 22:59 Other: Weight 76.204 kg Results 03/10/22 15:21 03/10/22 15:21 Cardiac Enzymes 03/10/22 Range/Units 15:21 AST 31 (14-36) U/L Coagulation 03/10/22 Range/Units 15:21 PT 10.4 (9.0-12.0) sec APTT 25.1 (22.0-30.0) sec CBC 03/10/22 Range/Units 15: WBC 10.1 (3.8-10.6) k/uL RBC 3.97 (3.80-5.40) m/uL Hgb 11.2 L (11.4-16.0) gm/dL Hct 34.5 (34.0-46.0) % Plt Count 232 (150-450) k/uL Comprehensive Metabolic Panel 03/10/22 Range/Units 15:21 Sodium 134 L (137-145) mmol/L Potassium 3.5 (3.5-5.1) mmol/L Chloride 99 (98-107) mmol/L Carbon Dioxide 26 (22-30) mmol/L BUN 32 H (7-17) mg/dL Creatinine 1.18 H (0.52-1.04) mg/dL Glucose 111 H (74-99) mg/dL Calcium 9.8 (8.4-10.2) mg/dL AST 31 (14-36) U/L ALT 21 (4-34) U/L Alkaline Phosphatase 112 (38-126) U/L Total Protein 6.6 (6.3-8.2) g/dL Albumin 3.6 (3.5-5.0) g/dL Intake and Output 03/10/22 03/10/22 03/10/22 06:59 14:59 22:59 Other: Weight 76.204 kg Patient Weight 03/11/22 06:59 Weight 76.204 kg 03/10/22 15:21 03/10/22 15:21
[2022-03-10] MEDS ORDERED: SODIUM CHLORIDE 0.9% 1,000 ML IV SCH ×2 (16:45)
[2022-03-10] MEDS ORDERED: fentaNYL (PF) 50 MCG/ML 2 ML AMP ONE (19:01)
[2022-03-10] MEDS ORDERED: IOPAMIDOL-370 50ML BTL INJ ONE (19:08)
[2022-03-10] MEDS ORDERED: LIDOCAINE 1% INJ 10MG/ML (30 ML VIAL-PF) SQ ONE ×3 (19:25→19:50)
[2022-03-10] MEDS ORDERED: IV FLUID CONTINUATION 800 ML IV ONE (20:21)
[2022-03-10] MEDS ORDERED: ACETAMINOPHEN TAB 325 MG TAB PO PRN (20:41)
--- NOTE | 2022-03-10 20:41 | P.PCN ---
Preoperative Diagnosis: Patient underwent EP procedure under conscious sedation/moderate sedation, monitoring of the level of consciousness and physiologic parameters including but not limited to vital signs and oxygenation. Patient tolerated the procedure well without any acute complications. Start time: 1919 Stop time: 2033
--- NOTE | 2022-03-10 20:41 | P.PCN ---
Preoperative Diagnosis: Transvenous temporary pacing procedure Indication for the procedure: Severe underlying bradycardia Patient was brought to the EP lab in a fasting state. Written informed consent was obtained prior to the procedure. The right groin was prepped and draped as a protocol. A 6-[place] sheath was placed in the right femoral vein. Via this, a temporary pacing catheter was placed in the right ventricle. Thresholds were interrogated. Temporary pacing was performed through the rest of the procedure. At the end of the entire procedure, the TVP was removed. The sheath was removed and hemostasis was assured. Patient tolerated the procedure well without any acute complications. Procedure performed Transvenous temporary pacing
[2022-03-10] MEDS: hydrALAZINE HCL 50 MG TAB PO SCH (22:11)
[2022-03-10] MEDS: ATORVASTATIN 40 MG TAB PO SCH (22:12)
--- NOTE | 2022-03-10 22:43 | P.HPIM ---
History of Present Illness H&P Date: 03/10/22 Chief Complaint: Tired This is a very pleasant 89-year-old patient who follows with Dr. Akanksha Laboy. Chronic stable medical conditions include hypertension, hyperlipidemia, prostatitis, varicose veins. For about 3 days patient been feeling lightheaded dizzy. Short of breath on exertion. No chest pain or palpitation. She made an appointment to see her family doctor. She was found to be in complete heart block and send him to the ER. Earlier this evening patient had a transvenous temporary pacing placed. Post wishes laying in bed. Left arm in a sling. Blood pressure running on the high side. No chest pain or palpitation. Review of systems: GEN.: Tired EYES: None HEENT: None NECK: None RESPIRATORY: None CARDIOVASCULAR: As above GASTROINTESTINAL: None GENITOURINARY: None MUSCULOSKELETAL: Joint pains LYMPHATICS: None HEMATOLOGICAL: None PSYCHIATRY: None NEUROLOGICAL: None Past medical history to include: Hypertension, hyperlipidemia, osteoarthritis, basal cell skin cancer removed, varicose veins, Social history: Nonsmoker. Alcohol rarely. Lives alone. Family history: Reviewed, noncontributory to presentation Physical examination: VITAL SIGNS: 98.3, 32, 16, 135-67, 98% room air upon presentation GENERAL: BMI 32.8, laying in bed, awake. Left dominant sling. EYES: Pupils equal. Conjunctiva normal. HEENT: External appearance of nose and ears normal, oral cavity grossly normal. NECK: JVD not raised; masses not palpable. HEART: First and second heart sounds are normal; no edema. LUNGS: Respiratory rate normal; clear to auscultation. ABDOMEN: Soft, nontender, liver spleen not palpable, no masses palpable. PSYCH: Alert and oriented x3; mood and affect normal. MUSCULOSKELETAL:No Clubbing/cyanosis;muscles-grossly intact. Evidence of OA. NEUROLOGICAL: Cranial nerves grossly intact; no facial asymmetry, power and sensation grossly intact. LYMPHATICS: No lymph nodes palpable in the axilla and neck INVESTIGATIONS, reviewed in the clinical context: White count 10.1 hemoglobin 11.2 platelets 232 sodium 134 potassium 3.5 BUN 32 creatinine 1.18 Troponin I 0.058 TSH 1.6 EKG tracing personally reviewed by me-complete heart block. Ventricular rate 25 Chest x-ray film personally reviewed by me-venous prominence Assessment and plan: -Complete heart block. Patient has been symptomatic for last 3-4 days. Temporary transvenous pacing placed. By Dr. Milton Souza. -Acute pulmonary edema from complete heart block Lasix as needed -Essential hypertension Hydralazine 100 mg twice a day. Amlodipine 5 mg a day. Hold beta salvador -Hyperlipidemia Lipitor 40 mg a day -Primary ostomy 30 cm bilaterally Tylenol as needed -Obesity BMI 32.8 Weight loss measures Resume home medications. Hold beta salvador. Temporary venous pacemaker placed. [address] Care was discussed the patient. Ques tions answered. Given the complexity and severity of patient's condition expect the patient to be in the hospital at least for 2 overnights Past Medical History Past Medical History: Hyperlipidemia, Hypertension, Osteoarthritis (OA) Additional Past Medical History / Comment(s): SEVERAL BASAL CELL/SKIN LESIONS REMOVED, heart murmer, varicose veins, UTI History of Any Multi-Drug Resistant Organisms: None Reported Past Surgical History: Section Additional Past Surgical History / Comment(s): BILATERAL CATARACTS Past Anesthesia/Blood Transfusion Reactions: Motion Sickness Past Psychological History: No Psychological Hx Reported Smoking Status: Never smoker Past Alcohol Use History: Rare Past Drug Use History: None Reported - Past Family History Mother Family Medical History: No Reported History Medications and Allergies Home Medications Medication Instructions Recorded Confirmed Type Atenolol/Chlorthalidone 1 tab PO DAILY 05/21/21 03/10/22 History [Atenolol/Chlorthalidone 50-25] Atorvastatin [Lipitor] 40 mg PO DAILY 05/21/21 03/10/22 History Cholecalciferol [Vitamin D3 (25 50 mcg PO DAILY 05/21/21 03/10/22 History Mcg = 1000 Iu)] Furosemide [Lasix] 20 mg PO Q48H 05/21/21 03/10/22 History Potassium Chloride [Klor-Con 20] 20 meq PO Q48H 05/21/21 03/10/22 History amLODIPine BESYLATE 5 mg PO DAILY 05/21/21 03/10/22 History hydrALAZINE HCL [Apresoline] 100 mg PO BID 05/21/21 03/10/22 History Allergies Allergy/AdvReac Type Severity Reaction Status Date / Time sulfamethoxazole AdvReac Nausea & Verified 03/10/22 17:07 [From Bactrim] Vomiting trimethoprim [From Bactrim] AdvReac Nausea & Verified 03/10/22 17:07 Vomiting Physical Exam Vitals: Vital Signs Temp Pulse Pulse Resp BP Pulse Ox 03/10/22 18:36 30 L 18 135/67 98 03/10/22 15:05 30 L 03/10/22 14:46 98.3 F 32 L 16 172/69 95 Intake and Output 03/10/22 03/10/22 03/10/22 06:59 14:59 22:59 Intake Total 200 Balance 200 Intake: IV 200 Other: Weight 76.204 kg Results CBC & Chem 7: 03/10/22 15:21 03/10/22 15:21 Labs: Abnormal Lab Results - Last 24 Hours (Table) 03/10/22 03/10/22 03/10/22 Range/Units 15:21 15:21 15:21 Hgb 11.2 L (11.4-16.0) gm/dL Neutrophils # 8.2 H (1.3-7.7) k/uL Sodium 134 L (137-145) mmol/L BUN 32 H (7-17) mg/dL Creatinine 1.18 H (0.52-1.04) mg/dL Glucose 111 H (74-99) mg/dL Magnesium 1.5 L (1.6-2.3) mg/dL Troponin I 0.058 H* (0.000-0.034) ng/mL
--- NOTE | 2022-03-11 08:28 | XR ---
EXAMINATION TYPE: XR chest 1V portable DATE OF EXAM: 03/11/2022 COMPARISON: X-ray dated 03/10/2022 HISTORY: Lead placement check TECHNIQUE: Single frontal view of the chest is obtained. FINDINGS: Interval insertion of a left upper chest wall dual-lead pacemaker. Increased cardiac transverse diame ter with dense aortic atherosclerotic calcifications. Prominent interstitial lung markings which coul d be related to mild underlying pulmonary fibrotic changes. No sizable pleural effusion or definite pneumothorax. Osteopenia. Degenerative changes of lower cervi marti, thoracic spine and the right glenohumeral articulation. Mild dextroscoliosis of the lower thorac ic spine. IMPRESSION: As above.
[2022-03-11] MEDS: hydrALAZINE HCL 50 MG TAB PO SCH ×3 (08:32→20:47)
--- NOTE | 2022-03-11 08:50 | P.PN ---
Subjective Progress Note Date: 03/11/22 PROGRESS NOTE The patient is an 89-year-old female who presented with symptoms of progressive fatigue, dizziness and dyspnea and was noted to be in complete heart block. She underwent permanent pacemaker implantation yesterday. She is feeling better today. Her breathing is better. She denies any chest discomfort, dizziness or palpitations. She is 100% paced at this time. She continues to be on aml odipine 5 mg daily, Lipitor 40 mg daily, hydralazine 100 mg twice a day. Her echocardiogram is pending. PHYSICAL EXAMINATION: Blood pressure 152/65 heart rate 60 LUNGS: [Clear to auscultation, pacemaker site clean] HEART: [Regular rate and rhythm, S1, S2. No S3. systolic ejection murmur at the base] ABDOMEN: [Soft, nontender, no organomegaly] EXTREMETIES: [Trace to 1+ edema] LAB: Pending IMPRESSION: 1. Complete heart block, post permanent pacemaker implantation 2. Hypertension 3. Hyperlipidemia 4. Renal insufficiency, could be worsened because of hypoperfusion PLAN: 1. Obtain an echocardiogram with Doppler 2. Follow renal functions 3. Increase physical activity 4. Follow blood pressure 5. If stable probable discharge home tomorrow. Objective - Vital Signs Vital signs: Vital Signs Temp 98.0 F 03/11/22 08:26 Pulse 58 L 03/11/22 08:26 Resp 18 03/11/22 08:26 BP 152/65 03/11/22 08:26 Pulse Ox 98 03/11/22 08:26 Intake & Output 03/10/22 03/11/22 03/11/22 18:59 06:59 18:59 Intake Total 200 20 Output Total 1500 Balance -1300 20 Weight 76.204 kg 76.204 kg 76.204 kg Intake: IV 200 20 Invasive Line 1 10 Invasive Line 2 10 Output: Urine 1500 Other: Voiding Method Toilet Toilet # Voids 2 - Labs CBC & Chem 7: 03/10/22 15:21 03/10/22 15:21 Labs: Abnormal Lab Results - Last 24 Hours (Table) 03/10/22 03/10/22 03/10/22 Range/Units 15:21 15:21 15:21 Hgb 11.2 L (11.4-16.0) gm/dL Neutrophils # 8.2 H (1.3-7.7) k/uL Sodium 134 L (137-145) mmol/L BUN 32 H (7-17) mg/dL Creatinine 1.18 H (0.52-1.04) mg/dL Glucose 111 H (74-99) mg/dL Magnesium 1.5 L (1.6-2.3) mg/dL Troponin I 0.058 H* (0.000-0.034) ng/mL
[2022-03-11] MEDS ORDERED: amLODIPine 5 MG TAB PO SCH (09:00)
[2022-03-11] MEDS ORDERED: ENOXAPARIN 40 MG/0.4 ML SYRINGE SQ SCH (09:00)
[2022-03-11 09:55] LABS: Calcium 9.6 mg/dL (8.4-10.2)
--- NOTE | 2022-03-11 10:56 | CA ---
Transthoracic Echo Report Name: Rhea Mcmahan Age: 89 Gender: F : 1930 Exam Date: 03/11/2022 08:44 Exam Location: [facility] Ht (in): 60 Wt (lb): 168 Ordering Physician: Skinny Sotomayor MD ([id number]) Attending/Referring Phys: Seam Rubbing Machine Operator Pao Deluca RDCS Procedure CPT: Indications: chb Cardiac Hx: Pacemaker Technical Quality: Fair Contrast 1: Total Dose (mL): Contrast 2: Total Dose (mL): MEASUREMENTS (Male / Female) Normal Values 2D ECHO LV Diastolic Diameter PLAX 4.1 cm 4.2 - 5.9 / 3.9 - 5.3 cm LV Systolic Diameter PLAX 2.5 cm IVS Diastolic Thickness 1.2 cm 0.6 - 1.0 / 0.6 - 0.9 cm LVPW Diastolic Thickness 1.2 cm 0.6 - 1.0 / 0.6 - 0.9 cm LV Relative Wall Thickness 0.6 RV Internal Dim ED PLAX 2.9 cm LVOT Diameter 1.9 cm M-MODE Aortic Root Diameter MM 2.7 cm MV E Point Septal Separation 0.7 cm AV Cusp Separation MM 1.4 cm DOPPLER AV Peak Velocity 212.2 cm/s AV Peak Gradient 18.0 mmHg AV Mean Velocity 157.1 cm/s AV Mean Gradient 10.8 mmHg AV Velocity Time Integral 51.5 cm MV Area PHT 2.8 cm??? Mitral E Point Velocity 92.8 cm/s Mitral A Point Velocity 104.1 cm/s Mitral E to A Ratio 0.9 MV Deceleration Time 274.1 ms MV E' Velocity 4.1 cm/s Mitral E to MV E' Ratio 22.7 TR Peak Velocity 300.5 cm/s TR Peak Gradient 36.1 mmHg Right Ventricular Systolic Press 41.1 mmHg FINDINGS Left Ventricle Left ventricular ejection fraction is estimated at 60-65 %. Left ventricular cavity size normal. Borderline left ventricular hypertrophy. Right Ventricle Normal right ventricular size and function. Mild pulmonary hypertension. Right Atrium Normal right atrial size. Left Atrium Normal left atrial size. No evidence for an atrial septal defect. Mitral Valve Mitral annular calcification. Mild mitral regurgitation. Mitral valve thickened. Aortic Valve Trileaflet aortic valve. No aortic valve stenosis or regurgitation. Focal thickening of the aortic valve cusps. Tricuspid Valve Mild tricuspid regurgitation. Pulmonic Valve Trace pulmonic regurgitation. Pericardium No pericardial effusion. Aorta Normal size aortic root and proximal ascending aorta. CONCLUSIONS Normal LV systolic function Mild mitral regurgitation Previewed by: Dr. Juan Craig MD (Electronically Signed) Final Date: 11 Mar 2022 10:54
[2022-03-11] MEDS ORDERED: Potassium Replacement Protocol 1 EACH MISC MISCELLANE PRN (14:41)
[2022-03-11] MEDS: POTASSIUM CHLORIDE ER 20 MEQ TAB.ER PO SCH ×3 (14:52→18:28)
--- NOTE | 2022-03-11 16:22 | P.PN ---
Progress Note - Text Progress Note Date: 03/11/22 Chief Complaint: Tired This is a very pleasant 89-year-old patient who follows with Dr. Akanksha Laboy. Chronic stable medical conditions include hypertension, hyperlipidemia, prostatitis, varicose veins. For about 3 days patient been feeling lightheaded dizzy. Short of breath on exertion. No chest pain or palpitation. She made an appointment to see her family doctor. She was found to be in complete heart block and send him to the ER. Earlier this evening patient had a transvenous temporary pacing placed. Post wishes laying in bed. Left arm in a sling. Blood pressure running on the high side. No chest pain or palpitation. March 11: Permanent pacemaker placed Comfortable. Left dominant sling. Family at the bedside. Blood pressure on the higher side. Oral intake fair. Active Medications Acetaminophen (Acetaminophen Tab 325 Mg Tab) 650 mg PO Q6HR PRN PRN Reason: Mild Pain Last Admin: 03/11/22 00:18 Dose: 650 mg Documented by: Amlodipine Besylate (Amlodipine 5 Mg Tab) 5 mg PO DAILY [facility] Last Admin: 03/11/22 08:32 Dose: 5 mg Documented by: Atorvastatin Calcium (Atorvastatin 40 Mg Tab) 40 mg PO HS [facility] Last Admin: 03/10/22 22:12 Dose: 40 mg Documented by: Enoxaparin Sodium (Enoxaparin 30 Mg/0.3 Ml Syringe) 30 mg SQ DAILY [facility] Hydralazine HCl (Hydralazine Hcl 50 Mg Tab) 100 mg PO BID [facility] Last Admin: 03/11/22 08:32 Dose: 100 mg Documented by: Miscellaneous Information (Potassium Replacement Protocol 1 Each [facility]) 1 each MISCELLANE DAILY PRN; Protocol PRN Reason: Per Protocol Potassium Chloride (Potassium Chloride Er 20 Meq Tab.Er) 20 meq PO Q1HR SHAZIA; Protocol Stop: 03/11/22 17:01 Last Admin: 03/11/22 14:52 Dose: 20 meq Documented by: Sodium Chloride (Sodium Chloride 0.9% Flush 10 Ml Syringe) 10 ml IV Q12HR [facility] Last Admin: 03/11/22 08:32 Dose: 10 ml Documented by: Past medical history to include: Hypertension, hyperlipidemia, osteoarthritis, basal cell skin cancer removed, varicose veins, Social history: Nonsmoker. Alcohol rarely. Lives alone. Family history: Reviewed, noncontributory to presentation Physical examination: VITAL SIGNS: 98.3, 61, 18, 165/70, 95% room air GENERAL:, laying in bed, awake. Left arm sling. EYES: Pupils equal. Conjunctiva normal. HEENT: External appearance of nose and ears normal, oral cavity grossly normal. NECK: JVD not raised; masses not palpable. HEART: First and second heart sounds are normal; no edema. LUNGS: Respiratory rate normal; clear to auscultation. ABDOMEN: Soft, nontender, liver spleen not palpable, no masses palpable. PSYCH: Alert and oriented x3; mood and affect normal. MUSCULOSKELETAL:No Clubbing/cyanosis;muscles-grossly intact. Evidence of OA. INVESTIGATIONS, reviewed in the clinical context: 2-D echo: EF 60 have a 65% May 10: Potassium 3 creatinine 1.0 White count 10.1 hemoglobin 11.2 platelets 232 sodium 134 potassium 3.5 BUN 32 creatinine 1.18 Troponin I 0.058 TSH 1.6 EKG tracing personally reviewed by me-complete heart block. Ventricular rate 25 Chest x-ray film personally reviewed by me-venous prominence Assessment and plan: -Complete heart block. Patient has been symptomatic for last 3-4 days. Permanent pacemaker placed by Dr. Joel Souza. -Acute pulmonary edema from complete heart block: Improved Lasix as needed -Essential hypertension: unControlled Increase Hydralazine 100 mg 3 times a day. Amlodipine 5 mg a day. -Hyperlipidemia Lipitor 40 mg a day -Primary osteoarthritis bilaterally Tylenol as needed -Obesity BMI 32.8 Weight loss measures Discussed with patient and family. Increase activity. Increase hydralazine 100 mg 3 times a day. Hopefully home tomorrow.
[2022-03-11] MEDS: ATORVASTATIN 40 MG TAB PO SCH (20:46)
[2022-03-12 08:23] LABS: Calcium 9.4 mg/dL (8.4-10.2); Potassium 3.6 mmol/L (3.5-5.1)
[2022-03-12] MEDS: hydrALAZINE HCL 50 MG TAB PO SCH (08:57)
[2022-03-12] MEDS ORDERED: amLODIPine 10 MG TAB PO SCH (09:00)
[2022-03-12] MEDS ORDERED: ENOXAPARIN 30 MG/0.3 ML SYRINGE SQ SCH (09:00)
[2022-03-12 09:48] VITALS: RESP 16; TEMP 97.7
--- NOTE | 2022-03-12 11:30 | P.PN ---
Subjective The patient is an 89-year-old female with past medical history of hypertension and dyslipidemia, chronic edema. She does not follow with a framing carpenter. We have been following the patient for third-degree AV block. Patient presented to the hospital secondary to Last few days has been complaining of progressive fatigue, dyspnea on exertion, dizziness but no syncope. She was seen by Dr. Laboy prior to admission and was found to be bradycardic. In the emergency room she was noted to be in complete heart block. Her EKG revealed sinus mechanism with complete heart block and a ventricular rate in the 30s. She was not on AV fransico blocking agents at home. On 03/10/2022 patient underwent permanent pacemaker mentation with Dr. Souza. 03/12/2022 Patient seen and examined at bedside, no acute distress. Some tenderness noted at the pacemaker site. She denies any chest pain, lightheadedness, dizziness, shortness of breath. Patient's device was interrogated with no acute findings, device is functioning normally. Echocardiogram revealed EF of 60-65%, mild mitral regurgitation, mild tricuspid regurgitation Blood pressure 152/66, heart rate 75, afebrile, saturations 95% on room air GENERAL: Well-appearing, well-nourished and in no acute distress. NECK: Supple without JVD or thyromegaly. LUNGS: Breath sounds clear to auscultation bilaterally. Respiration equal and unlabored. No wheezes, rales or rhonchi. HEART: Regular rate and rhythm without murmurs, rubs or gallops. S1 and S2 heard. EXTREMITIES: Normal range of motion, no edema. No clubbing or cyanosis. Peripheral pulses intact. ASSESSMENT Complete heart block, post permanent pacemaker implantation on 03/10/2022 History of hypertension Hyperlipidemia Acute kidney injury likely worsened because of hypoperfusion, improved Hypokalemia PLAN From cardiology perspective patient stable to be discharged home today. We will increase patient's amlodipine to 10 mg daily. Continue all current cardiac medications. Follow up outpatient with Dr. Sotomayor Nurse Practitioner note has been reviewed, I agree with a documented findings and plan of care. Patient was seen and examined. Objective - Vital Signs Vital signs: Vital Signs Temp 98.3 F 03/11/22 12:36 Pulse 61 03/11/22 12:49 Resp 18 03/11/22 12:49 BP 165/70 03/11/22 12:36 Pulse Ox 95 03/11/22 12:36 Intake & Output 03/10/22 03/11/22 03/11/22 18:59 06:59 18:59 Intake Total 200 20 Output Total 1500 Balance -1300 20 Weight 76.204 kg 76.204 kg 76.204 kg Intake: IV 200 20 Invasive Line 1 10 Invasive Line 2 10 Output: Urine 1500 Other: Voiding Method Toilet Toilet # Voids 2 2 - Labs CBC & Chem 7: 03/10/22 15:21 03/12/22 06:54 Labs: Abnormal Lab Results - Last 24 Hours (Table) 03/10/22 03/10/22 03/10/22 Range/Units 15:21 15:21 15:21 Hgb 11.2 L (11.4-16.0) gm/dL Neutrophils # 8.2 H (1.3-7.7) k/uL Sodium 134 L (137-145) mmol/L Potassium (3.5-5.1) mmol/L BUN 32 H (7-17) mg/dL Creatinine 1.18 H (0.52-1.04) mg/dL Glucose 111 H (74-99) mg/dL Magnesium 1.5 L (1.6-2.3) mg/dL Troponin I 0.058 H* (0.000-0.034) ng/mL 03/11/22 Range/Units 09:02 Hgb (11.4-16.0) gm/dL Neutrophils # (1.3-7.7) k/uL Sodium (137-145) mmol/L Potassium 3.0 L (3.5-5.1) mmol/L BUN 27 H (7-17) mg/dL Creatinine (0.52-1.04) mg/dL Glucose 110 H (74-99) mg/dL Magnesium (1.6-2.3) mg/dL Troponin I (0.000-0.034) ng/mL
[2022-03-12 13:18] VITALS: BP 163/70; PULSE 71
--- NOTE | 2022-03-12 19:21 | P.DS ---
Providers Date of admission: 03/10/22 17:04 Expected date of discharge: 03/12/22 Attending physician: Naif Mckee Primary care physician: Akanksha Laboy [facility] Course: Chief Complaint: Tired This is a very pleasant 89-year-old patient who follows with Dr. Akanksha Laboy. Chronic stable medical conditions include hypertension, hyperlipidemia, prostatitis, varicose veins. For about 3 days patient been feeling lightheaded dizzy. Short of breath on exertion. No chest pain or palpitation. She made an appointment to see her family doctor. She was found to be in complete heart block and send him to the ER. Earlier this evening patient had a transvenous temporary pacing placed. Post wishes laying in bed. Left arm in a sling. Blood pressure running on the high side. No chest pain or palpitation. March 11: Permanent pacemaker placed Comfortable. Left dominant sling. Family at the bedside. Blood pressure on the higher side. Oral intake fair. March 12: Patient's blood pressure medications were adjusted. Discussed with patient. Will follow up with cartilage in pacemaker clinic. Past medical history to include: Hypertension, hyperlipidemia, osteoarthritis, basal cell skin cancer removed, v aricose veins, Social history: Nonsmoker. Alcohol rarely. Lives alone. Family history: Reviewed, noncontributory to presentation Physical examination: VITAL SIGNS: 7.7, 75, 16, 1 52 x 56, 95% room air GENERAL:, Sitting up, comfortable. Left arm sling. EYES: Pupils equal. Conjunctiva normal. HEENT: External appearance of nose and ears normal, oral cavity grossly normal. NECK: JVD not raised; masses not palpable. HEART: First and second heart sounds are normal; no edema. LUNGS: Respiratory rate normal; clear to auscultation. ABDOMEN: Soft, nontender, liver spleen not palpable, no masses palpable. PSYCH: Alert and oriented x3; mood and affect normal. MUSCULOSKELETAL:No Clubbing/cyanosis;muscles-grossly intact. Evidence of OA. INVESTIGATIONS, reviewed in the clinical context: 2-D echo: EF 60 have a 65% March 10: Potassium 3 creatinine 1.0 White count 10.1 hemoglobin 11.2 platelets 232 sodium 134 potassium 3.5 BUN 32 creatinine 1.18 Troponin I 0.058 TSH 1.6 EKG tracing personally reviewed by me-complete heart block. Ventricular rate 25 Chest x-ray film personally reviewed by me-venous prominence Assessment and plan: -Complete heart block. Patient has been symptomatic for last 3-4 days. Permanent pacemaker placed by Dr. Joel Souza. -Acute pulmonary edema from complete heart block: Improved Lasix as needed -Essential hypertension: Hydralazine 100 mg 3 times a day. Amlodipine 5 mg a day. Chlorthalidone 25 mg a day -Hyperlipidemia Lipitor 40 mg a day -Primary osteoarthritis bilaterally Tylenol as needed -Obesity BMI 32.8 Weight loss measures Disposition: Home Plan - Discharge Summary Discharge Rx Participant: No New Discharge Prescriptions: New Chlorthalidone 25 mg PO DAILY #30 tab amLODIPine [Norvasc] 10 mg PO DAILY #30 tab Acetaminophen Tab [Tylenol] 650 mg PO Q6HR PRN tab PRN Reason: Mild Pain Continue Atorvastatin [Lipitor] 40 mg PO DAILY Cholecalciferol [Vitamin D3 (25 Mcg = 1000 Iu)] 50 mcg PO DAILY Changed hydrALAZINE HCL [Apresoline] 100 mg PO TID #90 tab Discontinued Potassium Chloride [Klor-Con 20] 20 meq PO Q48H amLODIPine BESYLATE 5 mg PO DAILY Atenolol/Chlorthalidone [Atenolol/Chlorthalidone 50-25] 1 tab PO DAILY Furosemide [Lasix] 20 mg PO Q48H Discharge Medication List Atorvastatin [Lipitor] 40 mg PO DAILY 05/21/21 [History] Cholecalciferol [Vitamin D3 (25 Mcg = 1000 Iu)] 50 mcg PO DAILY 05/21/21 [History] Acetaminophen Tab [Tylenol] 650 mg PO Q6HR PRN tab 03/12/22 [Rx] Chlorthalidone 25 mg PO DAILY #30 tab 03/12/22 [Rx] amLODIPine [Norvasc] 10 mg PO DAILY #30 tab 03/12/22 [Rx] hydrALAZINE HCL [Apresoline] 100 mg PO TID #90 tab 03/12/22 [Rx] Follow up Appointment(s)/Referral(s): Skinny Sotomayor MD [STAFF PHYSICIAN] - 1 Week (office will call patient and schedule follow up appointment) Akanksha Laboy MD [Primary Care Provider] - 03/17/22 1:00 pm Activity/Diet/Wound Care/Special Instructions: DC if okay with cardiology. Pacemaker clinic follow-up Activity Restrictions or Additional Instructions: Instructions following a heart rhythm device implant. 1. Keep dressing dry for 5 days. You guillermo cover the area with surrounding with a clean dressing/wrap prior to shower 2. The dressing can be removed in about 5 days in the Device Clinic at [facility]. Absorbable sutures were used to close the wound. 3. Avoid raising the left arm above the shoulder level. 4 week resection. 4. Avoid arm movements such as back scratching, rubbing the head or pulling on a cord. 4 week for striction. 5. Gentle range of motion movements of the shoulder, closest institution should be performed to avoid a frozen shoulder. (Pendulum exercises of the shoulder) 6. The opposite arm may be used freely. 7. Avoid driving for 7 days. 8. Avoid activities such as golfing, swimming, weed whacking, lifting more than 10 pounds of weight, bowling, and weight training/lifting (6 week restriction) 9. Being close to home induction cooktops and activities such as wood chopping with axe, pull ups, power lifting will always be a problem 10. Arm sling is only remind her not to raise arm above the head. You do not need to keep the arm completely immobilized. You're free to move the arm and use it in normal activities. In case of any problems, please call cardiology Bruce Allen at [phone] Attention: Device Clinic Device clinic follow up in 5 days Follw up with primary high school coach in 2-3 months Discharge Disposition: HOME SELF-CARE
--- NOTE | 2022-03-27 08:21 | P.EPPROC ---
- EP Procedure Note Electrophysiology Procedure Note: Diagnosis Severe bradycardia secondary to third degree heart block with a right bundle QRS escape rhythm alternating with a left bundle escape rhythm Tiredness and fatigue Procedure Dual-chamber pacemaker implantation after TVP placement in the EP lab Details Patient was brought to the EP lab in a fasting state. Written informed consent was obtained prior to the procedure. Conscious sedation provided by anesthesia team IV antibiotics administered. Local anesthesia administered. A 4 cm incision made in the pectoral area. Subfascial pocket made. Venous access obtained Venous sheaths placed. Leads placed in the right heart Atrial lead position the right atrial appendage. Passive lead, Medtronic in the right atrial appendage Model #4574, 53 cm in length P waves 1.8 mV, pacing impedance 513 ohms, pacing threshold 2.25 V at 0.4 ms RV lead position in the RV apex. 58 cm, model #4074, Medtronic R waves 1988 ohms, pacing threshold 0.5 also 0.4 ms Medtronic Dual-chamber pacemaker device connected to the leads and placed in the subfascial pocket Evelyn [address]EL[address] DR Patient tolerance the procedure well without acute complications
== END 2022-03-12 13:57 | disposition home or self-care (01) | DRG 242 ==
LOC: EC 14:16 → 3SCARD 17:04
PROVIDERS: ADMIT Hospitalist; ATTEND Hospitalist
PROC: 4A0234Z Measurement of Cardiac Electrical Activity, Percutaneous Approach (ICD-10-PCS; 2022-03-10)
PROC: 5A1223Z Performance of Cardiac Pacing, Continuous (ICD-10-PCS; 2022-03-10)
PROC: 4A023FZ Measurement of Cardiac Rhythm, Percutaneous Approach (ICD-10-PCS; 2022-03-10)
PROC: 02H63JZ Insertion of Pacemaker Lead into Right Atrium, Percutaneous Approach (ICD-10-PCS; principal; 2022-03-10 18:00)
PROC: 02HK3JZ Insertion of Pacemaker Lead into Right Ventricle, Percutaneous Approach (ICD-10-PCS; principal; 2022-03-10 18:00)
PROC: 0JH606Z Insertion of Pacemaker, Dual Chamber into Chest Subcutaneous Tissue and Fascia, Open Approach (ICD-10-PCS; principal; 2022-03-10 18:00)
DX: I44.2 Atrioventricular block, complete (principal); J81.0 Acute pulmonary edema; N17.9 Acute kidney failure, unspecified; R00.1 Bradycardia, unspecified; E66.9 Obesity, unspecified; E78.5 Hyperlipidemia, unspecified; E87.6 Hypokalemia; I10 Essential (primary) hypertension; I83.90 Asymptomatic varicose veins of unspecified lower extremity; M19.91 Primary osteoarthritis, unspecified site; Z68.32 Body mass index [BMI] 32.0-32.9, adult; Z79.899 Other long term (current) drug therapy; Z85.828 Personal history of other malignant neoplasm of skin; Z98.890 Other specified postprocedural states; Z98.42 Cataract extraction status, left eye; Z98.41 Cataract extraction status, right eye; Z60.2 Problems related to living alone
CPT/HCPCS: 33208; 36415; 71045; 71046; 80048; 80053; 83735; 84443; 84484; 85025; 85610; 85730; 93005; 93306; 99291